=== PATIENT | male | born 1945 | race Caucasian/White ===

== ENCOUNTER 2023-07-16 12:21 | Emergency (ER) | payer MEDICARE, OTHER, SELFPAY ==
[2023-07-16 12:27] VITALS: BP 136/69
[2023-07-16 12:49] LABS: % Basophils 0.3 % (0-2); % Eosinophils 1.8 % (0-6); % Immature Granulocytes 0.4 % (0-0.5); % Monocytes 12.4 % (1.7-9.3); % Neutrophils 60.1 % (42.2-75.2); Absolute Eosinophils 0.1 10^3/uL (0-0.7); Absolute Lymphocytes 1.9 10^3/uL (1.2-3.4); Absolute Neutrophils 4.6 10^3/uL (1.4-6.5); Hematocrit 37.9 % (39.0-52.0); Hemoglobin 12.9 g/dL (13.0-18.0); Mean Corpuscular Hgb 30.5 pg (27.0-31.0); Mean Corpuscular Volume 89.6 fL (80.0-94.0); Mean Platelet Volume 8.5 fL (7.4-10.4); Nucleated Red Blood Cells % 0 % (-); Platelet Count 229 10^3/uL (130-400); Red Blood Cell Count 4.23 10^6/uL (4.70-6.10); Red Cell Dist. Width 13.1 % (11.5-14.5); White Blood Cell Count 7.7 10^3/uL (4.8-10.8)
[2023-07-16 13:10] LABS: ALT (SGPT) 20 U/L (0-50); AST (SGOT) 31 U/L (17-59); Albumin 4.2 g/dl (3.5-5.0); Alkaline Phosphatase 79 U/L (38-126); Blood Urea Nitrogen 27 mg/dl (9-20); Calcium 9.7 mg/dl (8.4-10.2); Carbon Dioxide 21 mmol/L (22-30); Chloride 105 mmol/L (98-107); Glucose 107 mg/dl (70-99); Potassium 4.6 mmol/L (3.5-5.1); Sodium 136 mmol/L (135-145); Total Bilirubin 0.6 mg/dl (0.2-1.3); Total Protein 6.4 g/dl (6.3-8.2); eGFR > 60.00
[2023-07-16 17:07] VITALS: BMI 24.1
[2023-07-16 17:10] VITALS: BP 143/74
[2023-07-16] MEDS: NSS 1000 IV (17:16)
--- NOTE | 2023-07-16 17:18 | ED.GENMED ---
History of Present Illness
<Elaine Hill PA-C - Last Filed: 07/16/23 21:40>
General
Chief Complaint: Dizziness
Source: patient
Exam Limitations: none
Time Seen by Provider: 07/16/23 16:32
Nursing documentation reviewed up to this point in time: agreed with
Travel History
Have you had any contact with someone who has COVID-19?: No
Do you have any symptoms of coronavirus? Fever > 100 degrees, chills, cough, shortness of breath, sore throat, loss of taste or smell, muscle aches, or headache?: No
History of Present Illness
History of Present Illness:
pt is a 78 y/o M with h/o HTN on amlodipine, hld, bph
here with lightheadedness while he was cooking breakfast at 1030 am and suddenly felt lightheaded, like he was in a fog and 'not right'. he sat down and tried to eat but then didn't, says he wasn't nauseated but he just didn't want to eat
went and took his bp which was 130/60
and then laid down
about 11 am he took an meclizine becuase he once had vertigo but doesn't feel likt that is what he was feeling, no room spinnign dizziness
and they got to the er around 1 when symptoms were persistent
pt says that since being here , he has felt a little better but still not himself
he feels a little wobbly with walking
no headache, neck pain, vomiting, chest pain, palkptiations, wekaness, numbnes, confusion, word finding issues
no h/o smoking,s troke
pt woke up this morning feeling well
ate breakfast (bageL0 and went to the gym and then the bank brefore returning home to make eggs
he had felt well during that time
Past History
<Elaine Hill PA-C - Last Filed: 07/16/23 21:40>
Past History
ED Past Medical History: HTN and Hypercholesterolemia; Negative IDDM or NIDDM
ED Past Surgical History: Other (Hernia)
Social History
Tobacco: Former smoker
Alcohol: Former
Drug: None
Personal:
Living: with family
Employment: Retired
Family History
Family History: Other
Phy Exam
<Elaine Hill PA-C - Last Filed: 07/16/23 21:40>
Physical Exam
Physical Exam:
GENERAL: Alert , in no apparent distress
HEAD: NCAT
EYE: pupils equal and reactive, no nystagmus, no photophobia
NECK: Supple,full rom, nontender
ENT: o/p clr, mmm.
CARDIAC: Regular rate and rhythm . no edema, mild systolic murmur
LUNGS: Clear breath sounds bilaterally, no acute respiratory distress, no wheezes/rales/rhonchi
ABDOMEN: Soft, without focal tenderness, no r/g, no cvat
NEUROLOGICAL: Alert and orientedx 4, cn intact, no facial asymmetry, 5/5 strength in UE/LE, sensation intact, romberg neg, aseemed a little wobbly with standing initially; neg pronator drift
SKIN: Warm and dry, skin intact.
MUSCULOSKELETAL: No edema, well perfused.
PSYCH: Normal and appropriate interaction.
Course
<Elaine Hill PA-C - Last Filed: 07/16/23 21:40>
Orders/Labs/Results
Orders:
Orders
07/16/23 12:30
Electrocardiogram (*1) Urgent
Reason for Study: Chest Pain
EKG- Treatment ONCE
07/16/23 12:41
Complete Blood Count/With Diff Urgent
Comprehensive Metabolic Panel Urgent
07/16/23 17:05
0.9% Sodium Chloride 1000 ml [Nss] 1,000 ml IV BOLUS
07/16/23 18:06
CT Head W/o Iv Contrast Urgent
Comment:
Reason For Exam: dizziness
Abnormal Lab Results
07/16/23
12:41
RBC 4.23 L 10^6/uL
(4.70-6.10)
Hgb 12.9 L g/dL
(13.0-18.0)
Hct 37.9 L %
(39.0-52.0)
Absolute Monos (auto) 1.0 H 10^3/uL
(0.1-0.6)
Monocytes % 12.4 H %
(1.7-9.3)
Carbon Dioxide 21 L mmol/L
(22-30)
BUN 27 H mg/dl
(9-20)
Glucose 107 H mg/dl
(70-99)
07/16/23 12:41
07/16/23 12:41
Vital Signs
Initial and Last Documented VS:
Initial Vital Signs
Temp Pulse Resp BP Pulse Ox
97.8 F 72 16 136/69 98
07/16/23 12:27 07/16/23 12:27 07/16/23 12:27 07/16/23 12:27 07/16/23 12:27
Last Documented Vital Signs
Temp Pulse Resp BP Pulse Ox
97.8 F 67 18 166/75 97
07/16/23 12:27 07/16/23 20:15 07/16/23 20:15 07/16/23 20:00 07/16/23 20:00
Radhalt;Jeff Red, DO - Last Filed: 07/16/23 20:26>
Orders/Labs/Results
Orders:
Orders
07/16/23 12:30
Electrocardiogram (*1) Urgent
Reason for Study: Chest Pain
EKG- Treatment ONCE
07/16/23 12:41
Complete Blood Count/With Diff Urgent
Comprehensive Metabolic Panel Urgent
07/16/23 17:05
0.9% Sodium Chloride 1000 ml [Nss] 1,000 ml IV BOLUS
07/16/23 18:06
CT Head W/o Iv Contrast Urgent
Comment:
Reason For Exam: dizziness
Abnormal Lab Results
07/16/23
12:41
RBC 4.23 L 10^6/uL
(4.70-6.10)
Hgb 12.9 L g/dL
(13.0-18.0)
Hct 37.9 L %
(39.0-52.0)
Absolute Monos (auto) 1.0 H 10^3/uL
(0.1-0.6)
Monocytes % 12.4 H %
(1.7-9.3)
Carbon Dioxide 21 L mmol/L
(22-30)
BUN 27 H mg/dl
(9-20)
Glucose 107 H mg/dl
(70-99)
07/16/23 12:41
07/16/23 12:41
Vital Signs
Initial and Last Documented VS:
Initial Vital Signs
Temp Pulse Resp BP Pulse Ox
97.8 F 72 16 136/69 98
07/16/23 12:27 07/16/23 12:27 07/16/23 12:27 07/16/23 12:27 07/16/23 12:27
Last Documented Vital Signs
Temp Pulse Resp BP Pulse Ox
97.8 F 67 18 166/75 97
07/16/23 12:27 07/16/23 20:15 07/16/23 20:15 07/16/23 20:00 07/16/23 20:00
<Elaine Hill PA-C - Last Filed: 07/16/23 21:40>
MDM/Problems Addressed
Differential Diagnosis Includes:
orthostasis, dehydration, vertigo, less likely stroke, as
MDM/Problems Addressed:
78 y/o M with h/o htn , hld
describes feeling 'off' and 'out ob atul expoerience' today when standing makin eggs at 1030 am
lasting several hours, just felt not himself and a little lightheaded, wobbly
he had no headache, neck pain, weakness, numbness, passing out, cp
on exam pt is clearly orthostatic, positive orthostatic vs and sypmtoms
neuro was intact
no nystagmus
cerebeillar testing normal
ekg unchanged
labs show bun elevated
likely prerenal dehydration
givne 1 liter of fluid and felt mch better but still had repeated orthostatics that were postiive though he was not symptomatic
given another 500 ml bolus and reasesedd
walke d down the [place] briskly without prblems
turns out he drinks only coffee many cups a day and even takes coffee to the gym
recommend reduce caffine and try water
reviewed echo has h/o mod
d/c home return precautions
head ct no change chronic white matter
<Elaine Hill PA-C - Last Filed: 07/16/23 21:40>
*Critical Care Note
Total Time (30-74mins, 75-104mins- exclusive of procedures): Not Applicable
ED Attending Note
<Elaine Hill PA-C - Last Filed: 07/16/23 21:40>
-
Portions of this chart may have been created with voice recognition software.� Occasional wrong word or��sound alike� substitutions may have occurred due to the inherent limitations of voice recognition software.
<Jeff Red DO - Last Filed: 07/16/23 20:26>
ED Attending Note
Patient seen and examined by attending physician: Yes
I performed the substantive portion of visit, reviewed & personally made and approve the management plan that is documented in note by myself or ESEQUIEL.: Yes
ED Attending Note:
This is 78-year-old male presents after he had an episode of feeling weird while making this. Patient states he got up and walked the dogs and then went to the gym. He then was standing making eggs when he began to feel odd. He states it felt
sort of like an out of body experience. Patient would then went and checked his blood pressure and it was pretty good. He then laid down and felt better. He then got up and felt a little dizzy and nauseous. No chest pain. No shortness of
breath. No palpitations. No motor weakness. No numbness. No tingling. No vision changes. No speech changes. No gait disturbance. On my examination the patient does feel a lot better. He admits that he drinks a lot of coffee daily and drinks
throughout the day need to take through the gym into bed. He drank maybe up to 5 cups before this all happened this morning. He does state that his doctor has done an echo and ultrasound of his carotids in the past. Exam: No pronator drift,
normal [id number], no motor deficits, gait normal, no nystagmus. Assessment and plan: Patient appears well. Question whether this was orthostatic in nature as this occurred after the gym and while standing making headaches. He was orthostatic
is better after IV fluids. I counseled him on the importance of proper hydration and to only drink coffee with moderation. Patient agrees. He will follow-up PCP. Has had echo that showed moderate .
Discharge Plan
Departure
Patient Disposition: Home (Routine Discharge)
Date of Disposition: 07/16/23
Time of Disposition: 20:30
Patient with high blood pressure during this ER visit?: No
Condition: Fair
Discharge Problem:
Dehydration, Orthostatic dizziness
Instructions: Orthostatic hypotension, Dizziness, Nonvertigo, (DC)
Prescriptions:
No Action
tamsulosin [Flomax] 0.4 MG capsule
0.4 mg PO A LINE
simvastatin 20 MG tablet
20 mg PO DAILY
amlodipine 5 mg tablet
5 mg PO DAILY Qty: 30 0RF
Referrals:
Jarred Philip MD [Family Provider] - Follow up in 2-3 days
Activity Restrictions/Additional Instructions:
YOUR SYPMTOMS ARE LIKELY FROM BEING DEHYDRATED
WHEN YOU STAND, YOUR BLOOD PRESSURE DROPS SOME AND YOUR HEART RATE GOES UP
MAKE SURE TO SIT ON THE SIDE OF THE BED FIRST BEFORE STANDING
GIVE YOURSELF TIME WHEN YOU STAND UP BEFORE WALKING
SEE YOUR DOCTOR THIS WEEK
DRINK MORE FLUIDS
RETURN FOR ANY CONCERNS, PASSING OUT, CHEST PAIN, HEADACHE, CONFUSION, WEAKNESS, ETC
Interventions
Interventions:
*Risk Screen - Suicide Last Done: 07/16/23 12:27
*General Assessment Last Done: 07/16/23 12:27
*Neglect/Abuse Screening Last Done: 07/16/23 12:27
ED- Fall Risk Assessment Last Done: 07/16/23 20:45
*ED COVID-19 Vaccine History Last Done: 07/16/23 17:08
*Nursing Disposition Last Done: 07/16/23 20:45
ED- Neurological Assessment Last Done: 07/16/23 17:10
ED Swallowing Screen Last Done: 07/16/23 17:10
Discharge Date and Time
Discharge Date/Time: 07/16/23 20:46
Print Language: AFGHAN
[2023-07-16 18:04] VITALS: BP 166/75
[2023-07-16 19:08] VITALS: BP 161/69
[2023-07-16 19:11] VITALS: BP 139/72
[2023-07-16 20:00] VITALS: BP 166/75
== END 2023-07-16 20:46 | disposition home or self-care (01) ==
LOC: EMR 12:21
PROVIDERS: Emergency Medicine; EMERGENCY PHYSICIAN Emergency Medicine; FAMILY PHYSICIAN Family Medicine
DX: E86.0 Dehydration (principal); R42 Dizziness and giddiness; R11.0 Nausea; I10 Essential (primary) hypertension; N40.0 Benign prostatic hyperplasia without lower urinary tract symptoms; E78.00 Pure hypercholesterolemia, unspecified; K57.92 Diverticulitis of intestine, part unspecified, without perforation or abscess without bleeding; Z87.891 Personal history of nicotine dependence; Z91.048 Other nonmedicinal substance allergy status
CPT/HCPCS: 99284; 96360; 70450; 80053; 85025; 93005

== ENCOUNTER → 2023-08-16 07:08 | Outpatient (REF) | payer MEDICARE, OTHER, SELFPAY | LOC: RCS 07:08 | PROVIDERS: ATTENDING PHYSICIAN Family Medicine | DX: I35.0 Nonrheumatic aortic (valve) stenosis (principal); R55 Syncope and collapse | CPT/HCPCS: 93225; 93226; 93306 ==

== ENCOUNTER → 2023-12-28 07:53 | Outpatient (REF) | payer MEDICARE, OTHER, SELFPAY | LOC: EMG 07:53 | PROVIDERS: ATTENDING PHYSICIAN Orthopaedic Surgery; FAMILY PHYSICIAN Family Medicine | DX: R20.0 Anesthesia of skin (principal); M54.12 Radiculopathy, cervical region | CPT/HCPCS: 95886; 95911 ==

== ENCOUNTER → 2024-02-07 11:15 | Outpatient (REF) | payer MEDICARE, OTHER, SELFPAY | LOC: HWRAD 11:15 | PROVIDERS: ATTENDING PHYSICIAN Neurological Surgery; FAMILY PHYSICIAN Family Medicine | DX: M47.12 Other spondylosis with myelopathy, cervical region (principal) | CPT/HCPCS: 72125 ==

== ENCOUNTER → 2024-08-12 12:55 | Outpatient (REF) | payer MEDICARE, OTHER, SELFPAY | LOC: DHSLP 12:55 | PROVIDERS: ATTENDING PHYSICIAN Family Medicine | DX: G47.00 Insomnia, unspecified (principal); G47.61 Periodic limb movement disorder; G47.8 Other sleep disorders; R06.83 Snoring | CPT/HCPCS: 95810 ==

== ENCOUNTER → 2024-08-18 09:09 | Outpatient (REF) | payer MEDICARE, OTHER, SELFPAY | LOC: HWRCS 09:09 | PROVIDERS: ATTENDING PHYSICIAN Family Medicine | DX: I35.0 Nonrheumatic aortic (valve) stenosis (principal) | CPT/HCPCS: 93306 ==

== ENCOUNTER → 2024-12-26 09:45 | Outpatient (REF) | payer MEDICARE, OTHER, SELFPAY | LOC: EMG 09:45 | PROVIDERS: ATTENDING PHYSICIAN Family Medicine | DX: R20.0 Anesthesia of skin (principal); M54.12 Radiculopathy, cervical region | CPT/HCPCS: 95886; 95909 ==